=== PATIENT | male | born 2000 | race Caucasian/White ===

== ENCOUNTER 2024-06-26 19:23 | Emergency (ER) | payer SELFPAY ==
[~2024-06-26] VITALS: Ht 177.8 cm; Wt 66.0 kg
[2024-06-26 19:31] VITALS: BP 132/78; PULSE 104; RESP 16; TEMP 97.9; O2SAT 96
== END 2024-06-26 20:10 | disposition left against medical advice (07) ==
LOC: ER 19:23
DX: R53.1 Weakness (principal); Z53.21 Procedure and treatment not carried out due to patient leaving prior to being seen by health care provider